=== PATIENT | female | born 1980 | race Caucasian/White ===

== ENCOUNTER 2016-04-23 09:35 | Emergency (ER) | payer OTHER ==
[~2016-04-23] VITALS: Ht 165.1 cm; Wt 82.6 kg
[~2016-04-23 09:35] MED LIST: ACTOS15 MG PO; GLYBURIDE AND M1 TA2 PO; METFORMIN500 MG PO
[2016-04-23 09:59] VITALS: BP 148/110
--- NOTE | 2016-04-23 10:02 | NUR ---
Patient ambulated to bed 08.
--- NOTE | 2016-04-23 10:09 | NUR ---
PATIENT PRESENTS TO ED DUE TO LEFT SIDED BACK, LEG, AND HIP PAIN X 3 DAYS, DENIES N/V/D; SKIN IS PINK/WARM/DRY; AAOX4 WITH EVEN AND STEADY GAIT; LUNGS CLEAR BL; HR EVEN AND REGULAR; PT DENIES ANY FEVER, CP, SOB, OR COUGH AT THIS TIME; PATIENT STATES PAIN OF 10/10 AT THIS TIME; PATIENT POSITIONED FOR COMFORT; HOB ELEVATED; BEDRAILS UP X2; BED DOWN. DR. MAJOR AT BEDSIDE.AWARE OF THE RESULT OF URINE DIPSTICK.
--- NOTE | 2016-04-23 10:12 | NUR ---
Dr. Soares evaluating patient at bedside.
[2016-04-23] MEDS ORDERED: METHOCARBAMOL 500 MG TAB PO SCH (10:20)
[2016-04-23] MEDS ORDERED: KETOROLAC 30 MG/ML VIAL IM ONE (10:20)
[2016-04-23] MEDS ORDERED: HYDROcodone/APAP 5/325 MG 1 TAB TAB PO ONE (10:20)
[2016-04-23] MEDS ORDERED: MORPHINE SULFATE 4 MG/ML SYR IM ONE (11:20)
--- NOTE | 2016-04-23 11:20 | NUR ---
PT SITTING IN BED STILL COMPLAINING OF BACK PAIN,DR. MAJOR AWARE
[2016-04-23 12:14] VITALS: BP 130/81
--- NOTE | 2016-04-23 12:14 | NUR ---
Patient discharged with v/s stable. Written and verbal after care instructions given and explained. Patient alert, oriented and verbalized understanding of instructions. Ambulatory with steady gait. All questions addressed prior to discharge. ID band removed. Patient advised to follow up with PMD. Rx of CIPRO,MOTRIN,NEURONTIN AND ROBAXIN given. Patient educated on indication of medication including possible reaction and side effects. Opportunity to ask questions provided and answered.
== END 2016-04-23 12:14 | disposition home or self-care (01) ==
LOC: MED 09:37
DX: M54.16 Radiculopathy, lumbar region (principal); N93.9 Abnormal uterine and vaginal bleeding, unspecified; E11.9 Type 2 diabetes mellitus without complications; Z88.1 Allergy status to other antibiotic agents
CPT/HCPCS: 81002; 81025; 96372; 99284; J1885; J2270

== ENCOUNTER 2016-09-10 19:31 | Emergency (ER) | payer OTHER ==
[~2016-09-10] VITALS: Ht 162.6 cm; Wt 79.4 kg
[~2016-09-10 19:31] MED LIST changes: -ACTOS15 MG PO; +GLYB1TAB13 PO; -GLYBURIDE AND M1 TA2 PO; -METFORMIN500 MG PO
[2016-09-10 19:48] VITALS: BP 140/92
--- NOTE | 2016-09-10 22:37 | NUR ---
PATIENT TO ER BED 8
--- NOTE | 2016-09-10 22:59 | NUR ---
Patient being evaluated by Dr. Lara at bedside.
--- NOTE | 2016-09-10 23:02 | NUR ---
36/F c/o vaginal pain and burning x3 days. Pt states "I think I have blisters there. It hurtado when I pee but not out of where I pee but around it." Denies any fever or chills. AOX4, ambulatory with steady gait. VSS.
--- NOTE | 2016-09-10 23:04 | NUR ---
Pelvic exam performed by Dr. Lara with myself at bedside for entire examination. Patient tolerated procedure well. Patient assisted to position of comfort after examination.
[2016-09-10] MEDS ORDERED: KETOROLAC 60 MG/2 ML VIAL IM ONE (23:05)
[2016-09-10 23:30] VITALS: BP 129/88
--- NOTE | 2016-09-10 23:30 | NUR ---
Chart checked and completed. The patient's care was reviewed and supervised by Oneil Morillo RN.
--- NOTE | 2016-09-10 23:30 | NUR ---
Patient discharged with v/s stable. Written and verbal after care instructions given and explained. Patient alert, oriented and verbalized understanding of instructions. Ambulatory with steady gait. All questions addressed prior to discharge. ID band removed. Patient advised to follow up with PMD. Rx of CIPRO 500 MG, MOTRIN 500 MG, NORCO 5/325 MG, ACYCLOVIR 800 MG given. Patient educated on indication of medication including possible reaction and side effects. Opportunity to ask questions provided and answered.
[2016-09-15 06:27] LABS: CHLAMYDIA TRACHOMATIS AMP DNA Negative (Negative)
== END 2016-09-10 23:30 | disposition home or self-care (01) ==
LOC: MED 19:31
DX: N39.0 Urinary tract infection, site not specified (principal); B00.9 Herpesviral infection, unspecified; E11.9 Type 2 diabetes mellitus without complications; Z90.49 Acquired absence of other specified parts of digestive tract; Z88.1 Allergy status to other antibiotic agents; Z79.899 Other long term (current) drug therapy
CPT/HCPCS: 36415; 81002; 81025; 87491; 96372; 99283; J1885; 99284

== ENCOUNTER 2017-03-23 08:55 | Emergency (ER) | payer OTHER ==
[~2017-03-23] VITALS: Ht 162.6 cm; Wt 79.4 kg
[2017-03-23 09:06] VITALS: BP 151/98
--- NOTE | 2017-03-23 09:10 | NUR ---
PT AMBULATED TO BED 10.
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
[2017-03-23] MEDS ORDERED: NACL 0.9% 1,000 ML IV ONE (09:30)
[2017-03-23 09:56] LABS: BASOPHILS # (AUTO) 0.3 K/uL (0.00-0.22); BASOPHILS % (AUTO) 4.6 % (0.0-2.0); EOSINOPHILS # (AUTO) 0.2 K/uL (0-0.4); EOSINOPHILS % (AUTO) 2.5 % (0.0-4.0); HEMATOCRIT 42.5 % (36-48); HEMOGLOBIN 14.1 g/dL (12.0-16.0); LYMPHOCYTES # (AUTO) 2.3 K/uL (2.5-16.5); LYMPHOCYTES % (AUTO) 35.8 % (20.5-51.1); MEAN CORPUSCULAR HEMOGLOBIN 29 pg (27-31); MEAN CORPUSCULAR HGB CONC 33 g/dL (33-37); MEAN CORPUSCULAR VOLUME 87 fL (80-94); MONOCYTES # (AUTO) 0.5 K/uL (0.8-1.0); MONOCYTES % (AUTO) 7.4 % (1.7-9.3); NEUTROPHILS % (AUTO) 49.7 % (42.2-75.2); PLATELET COUNT (AUTO) 286 K/uL (140-450); RED BLOOD CELL COUNT(AUTO) 4.87 MIL/uL (4.20-5.40); WHITE BLOOD COUNT (AUTO) 6.3 K/uL (4.8-10.8)
[2017-03-23 10:27] LABS: ALBUMIN 3.4 g/dL (3.4-5.0); ANION GAP 18.4 (8-16); CARBON DIOXIDE 23.6 mmol/L (21-32); CREATININE 0.8 mg/dL (0.6-1.3); TOTAL BILIRUBIN 0.5 mg/dL (0.0-1.0)
--- NOTE | 2017-03-23 10:45 | NUR ---
PT TAKEN TO CT VIA W/C, ACCOMPANIED BY PLANT TENDER.
[2017-03-23 11:33] VITALS: BP 134/84
--- NOTE | 2017-03-23 11:33 | NUR ---
Patient discharged with v/s stable. Written and verbal after care instructions given and explained. Patient alert, oriented and verbalized understanding of instructions. Ambulatory with steady gait. All questions addressed prior to discharge. ID band removed. Patient advised to follow up with PMD. Rx of BACTRIM, NAPROSYN & TYLENOL given. Patient educated on indication of medication including possible reaction and side effects. Opportunity to ask questions provided and answered.
== END 2017-03-23 11:33 | disposition home or self-care (01) ==
LOC: MED 08:55
DX: L02.215 Cutaneous abscess of perineum (principal); E11.9 Type 2 diabetes mellitus without complications; F03.90 Unspecified dementia, unspecified severity, without behavioral disturbance, psychotic disturbance, mood disturbance, and anxiety; Z88.1 Allergy status to other antibiotic agents; Z79.84 Long term (current) use of oral hypoglycemic drugs
CPT/HCPCS: 36415; 72193; 80053; 81002; 81025; 82948; 85025; 96360; 99285; Q9967

== ENCOUNTER 2017-06-25 11:16 | Emergency (ER) | payer OTHER ==
[~2017-06-25] VITALS: Ht 162.6 cm; Wt 80.7 kg
[~2017-06-25 11:16] MED LIST changes: -GLYB1TAB13 PO; +[UNRECOGNIZED DRUG - CODE] PO
[2017-06-25 11:18] VITALS: BP 147/87
--- NOTE | 2017-06-25 11:28 | NUR ---
PATIENT TO CHAIR E
--- NOTE | 2017-06-25 11:47 | NUR ---
STY ON HER LEFT EYE WITH PAIN, REDNESS, SWELLING FOR 7DAYS. reports fevers at night only, no drainage observed.
--- NOTE | 2017-06-25 11:56 | NUR ---
DR MILLER BY CHAIR FOR EXAM.
[2017-06-25 12:06] VITALS: BP 147/87
--- NOTE | 2017-06-25 12:06 | NUR ---
Patient discharged with v/s stable. Written and verbal after care instructions given and explained. Patient alert, oriented and verbalized understanding of instructions. Ambulatory with steady gait. All questions addressed prior to discharge. ID band removed. Patient advised to follow up with PMD. Rx of BACTRIM AND BLEPH -10 OPTHALMIC given. Patient educated on indication of medication including possible reaction and side effects. Opportunity to ask questions provided and answered.
== END 2017-06-25 12:06 | disposition home or self-care (01) ==
LOC: MED 11:16
DX: H00.025 Hordeolum internum left lower eyelid (principal); E11.9 Type 2 diabetes mellitus without complications; Z79.84 Long term (current) use of oral hypoglycemic drugs; Z88.1 Allergy status to other antibiotic agents
CPT/HCPCS: 99283

== ENCOUNTER 2018-01-06 18:29 | Emergency (ER) | payer OTHER ==
[~2018-01-06] VITALS: Ht 167.6 cm; Wt 70.3 kg
[2018-01-06 18:34] VITALS: BP 136/79
--- NOTE | 2018-01-06 18:35 | NUR ---
[place] [employer] HERE SPEAKING WITH PT
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
[2018-01-06] MEDS ORDERED: DIAZEPAM 5 MG TAB PO ONE (19:40)
[2018-01-06] MEDS ORDERED: KETOROLAC 30 MG/ML VIAL IM ONE (19:40)
[2018-01-06 20:09] VITALS: BP 130/72
--- NOTE | 2018-01-06 20:10 | NUR ---
Patient discharged with v/s stable. Written and verbal after care instructions given and explained. Patient alert, oriented and verbalized understanding of instructions. Ambulatory with steady gait. All questions addressed prior to discharge. ID band removed. Patient advised to follow up with PMD. Rx of NAPROSYN, VALIUM given. Patient educated on indication of medication including possible reaction and side effects. Opportunity to ask questions provided and answered.
== END 2018-01-06 20:10 | disposition home or self-care (01) ==
LOC: MED 18:29
DX: S39.012A Strain of muscle, fascia and tendon of lower back, initial encounter (principal); F03.90 Unspecified dementia, unspecified severity, without behavioral disturbance, psychotic disturbance, mood disturbance, and anxiety; E11.9 Type 2 diabetes mellitus without complications; Z90.49 Acquired absence of other specified parts of digestive tract; Z88.1 Allergy status to other antibiotic agents; V43.52XA Car driver injured in collision with other type car in traffic accident, initial encounter; Y93.I9 Activity, other involving external motion; Y92.488 Other paved roadways as the place of occurrence of the external cause; Y99.8 Other external cause status
CPT/HCPCS: 72072; 96372; 99284; J1885

== ENCOUNTER 2018-07-02 19:09 | Emergency (ER) | payer OTHER ==
[~2018-07-02] VITALS: Ht 162.6 cm; Wt 79.4 kg
[2018-07-02 19:25] VITALS: BP 150/90
--- NOTE | 2018-07-02 19:25 | NUR ---
VISUAL ACUITY BOTH EYE 20/25, RT 20/25, LEFT EYE 20/25
--- NOTE | 2018-07-02 19:25 | NUR ---
TO BED # 4 AMBULATORY
--- NOTE | 2018-07-02 19:32 | NUR ---
PT TAKEN TO BED 3
--- NOTE | 2018-07-02 19:39 | NUR ---
Dr. Dhaliwal evaluating patient at bedside.
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
[2018-07-02] MEDS ORDERED: KETOROLAC 60 MG/2 ML VIAL IM ONE (19:50)
--- NOTE | 2018-07-02 20:34 | NUR ---
PT VERBALIZED A PAIN DECREASED TO 7/10. VSS
[2018-07-02] MEDS ORDERED: fentaNYL 0.05 MG/ML VIAL IM ONE (20:40)
--- NOTE | 2018-07-02 21:10 | NUR ---
REPORT TAKEN FROM KATELYNN YOUNG, TRANSFER OF CARE AT THIS TIME.
[2018-07-02 21:24] VITALS: BP 140/82
--- NOTE | 2018-07-02 21:24 | NUR ---
Patient discharged with v/s stable. Written and verbal after care instructions given and explained. Patient alert, oriented and verbalized understanding of instructions. Ambulatory with steady gait. All questions addressed prior to discharge. ID band removed. Patient advised to follow up with PMD. Rx of TRAMADOL AND MOTRIN given. Patient educated on indication of medication including possible reaction and side effects. Opportunity to ask questions provided and answered.
== END 2018-07-02 21:24 | disposition home or self-care (01) ==
LOC: MED 19:09
DX: R51 Headache (principal); H57.12 Ocular pain, left eye; H53.149 Visual discomfort, unspecified; E11.9 Type 2 diabetes mellitus without complications; F03.90 Unspecified dementia, unspecified severity, without behavioral disturbance, psychotic disturbance, mood disturbance, and anxiety; Z79.84 Long term (current) use of oral hypoglycemic drugs; Z88.1 Allergy status to other antibiotic agents
CPT/HCPCS: 70480; 81025; 96372; 99284; J1885; J3010

== ENCOUNTER 2020-10-16 11:19 | Inpatient (IN) | payer OTHER, SELFPAY ==
[~2020-10-16] VITALS: Ht 162.6 cm; Wt 74.8 kg
[~2020-10-16 11:19] MED LIST changes: +[UNRECOGNIZED DRUG - CODE] PO; -[UNRECOGNIZED DRUG - CODE] PO
[2020-10-16 11:31] VITALS: BP 152/86
--- NOTE | 2020-10-16 11:31 | NUR ---
40 YEAR OLD FEMALE COMPLAINS OF LEFT FLANK PAIN X 3 WEEKS. PT STATES SHE HAD KIDNEY STONES AND A UTI X 3 WEEKS AGO. PT STATES SHE FINISHED ANTIBIOTICS PRESCRIBED, BUT FLANK PAIN CONTINUED AND PROGRESSED. PT DENIES N/V/D. PT DENIES URINATION BURNING, FREQUENCY, ODOR. PMH - DM2
[2020-10-16 14:43] LABS: BASOPHILS % (AUTO) 0.3 % (0.0-2.0); EOSINOPHILS # (AUTO) 0.2 K/uL (0-0.4); EOSINOPHILS % (AUTO) 2.7 % (0.0-4.0); HEMATOCRIT 43.1 % (36-48); HEMOGLOBIN 14.6 g/dL (12.0-16.0); LYMPHOCYTES # (AUTO) 2.7 K/uL (2.5-16.5); LYMPHOCYTES % (AUTO) 36.1 % (20.5-51.1); MEAN CORPUSCULAR HEMOGLOBIN 30 pg (27-31); MEAN CORPUSCULAR HGB CONC 34 g/dL (33-37); MEAN CORPUSCULAR VOLUME 88.2 fL (80-94); MONOCYTES # (AUTO) 0.5 K/uL (0.8-1.0); MONOCYTES % (AUTO) 6.5 % (1.7-9.3); NEUTROPHILS # (AUTO) 4.1 K/uL (1.8-7.7); NEUTROPHILS % (AUTO) 54.4 % (42.2-75.2); PLATELET COUNT (AUTO) 308 K/uL (140-450); RED BLOOD CELL COUNT(AUTO) 4.89 MIL/uL (4.20-5.40); RED CELL DISTRIBUTION WIDTH 13.3 % (11.6-13.7); WHITE BLOOD COUNT (AUTO) 7.6 K/uL (4.8-10.8)
[2020-10-16] MEDS ORDERED: KETOROLAC 60 MG/2 ML VIAL IM ONE (14:45)
[2020-10-16 15:06] LABS: ALBUMIN 3.5 g/dL (3.4-5.0); ANION GAP 12.4 (8-16); CARBON DIOXIDE 28.4 mmol/L (21-32); CREATININE 0.8 mg/dL (0.6-1.3); POTASSIUM 4.8 mmol/L (3.5-5.1); TOTAL BILIRUBIN 0.9 mg/dL (0.0-1.0)
[2020-10-16 15:08] LABS: APPEARANCE,URINE SL CLOUDY (CLEAR); BILIRUBIN,URINE NEGATIVE (NEGATIVE); BLOOD, URINE TRACE-I (NEGATIVE); LEUKOCYTE ESTERASE ,URINE TRACE (NEGATIVE); NITRITE, URINE NEGATIVE (NEGATIVE); PH,URINE 5.5 (5.0-9.0); UGLUCOSE 3+ (NEGATIVE)
[2020-10-16 15:22] LABS: COLOR,URINE YELLOW (YELLOW)
[2020-10-16 15:53] LABS: WBC,URINE 80-100 /HPF (0-5)
[2020-10-16 15:54] LABS: YEAST,URINE Few /HPF (None Seen)
--- NOTE | 2020-10-16 16:41 | NUR ---
Ambulated to bed 5
[2020-10-16] MEDS ORDERED: MORPHINE SULFATE 4 MG/ML SYR IVP ONE (16:45)
[2020-10-16] MEDS ORDERED: ONDANSETRON 4 MG/2 ML VIAL IVP ONE (16:45)
[2020-10-16] MEDS ORDERED: NACL 0.9% 1,000 ML IV ONE (16:45)
[2020-10-16] MEDS ORDERED: LEVOFLOXACIN 750 MG/D5W PREMIX 150 ML IV ONE (17:15)
--- NOTE | 2020-10-16 18:24 | NUR ---
PT ALERT AND AWAKE, BREATHING EVEN AND UNLABORED. NO DISTRESS NOTED. PT STATES PAIN MUCH MORE TOLERABLE AND DOING FINE
--- NOTE | 2020-10-16 19:16 | NUR ---
report received from rico oshea. transfer of care at this time.
--- NOTE | 2020-10-16 19:16 | NUR ---
REPORT GIVEN TO ENRIQUE YOUNG, TRANSFER OF CARE AT THIS TIME
[2020-10-16] MEDS ORDERED: ACETAMINOPHEN 325 MG TAB PO PRN (19:25)
[2020-10-16] MEDS ORDERED: DEXTROSE 50% 50 ML SYR IVP PRN (19:25)
[2020-10-16] MEDS ORDERED: MAG SULF 2000 MG/WATER PREMIX 50 ML IV PRN (19:25)
[2020-10-16] MEDS ORDERED: FLUCONAZOLE 100 MG TAB PO SCH (19:25)
[2020-10-16] MEDS ORDERED: SODIUM PHOS / POTASSIUM PHOS 1 PKT PDR PO PRN (19:25)
[2020-10-16] MEDS ORDERED: POTASSIUM CHLORIDE 40 MEQ, LIDOCAINE MPF 1% 25 MG in NACL 0.9% 250 ML IV PRN (19:25)
[2020-10-16] MEDS ORDERED: ONDANSETRON 4 MG/2 ML VIAL IM/IVP PRN (19:25)
--- NOTE | 2020-10-16 19:40 | NUR ---
pt is sitting up in bed. pt stated pain is starting to begin, ermd aware, will check kidney function for pain medication. all other needs met. bed locked in lowest position, side rails x1.
[2020-10-16 19:41] LABS: MAGNESIUM 1.9 mg/dL (1.8-2.4); PHOSPHORUS 2.6 mg/dL (2.5-4.9)
--- NOTE | 2020-10-16 20:01 | NUR ---
pt refused perry swab. ermd made aware.
[2020-10-16] MEDS: NACL 0.9% 1,000 ML IV SCH (20:07)
[2020-10-16] MEDS: BLOOD GLUCOSE MONITORING 1 DEV DEV FS SCH (20:32)
[2020-10-16] MEDS: INSULIN LISPRO SLIDING SCALE 100 UNITS/ML VIAL SUBQ PRN (20:35)
--- NOTE | 2020-10-16 20:45 | NUR ---
pt reported L flank pain 09/07. pt has 1mg of morphine ordered. offered to pt. pt stated its not enough. offered pt morphine as well as norco for pain. pt stated that was ok.
[2020-10-16] MEDS: HYDROcodone/APAP 5/325 MG 1 TAB TAB PO PRN (20:51)
[2020-10-16] MEDS: MORPHINE SULFATE 2 MG/ML SYR IVP PRN (20:53)
--- NOTE | 2020-10-16 21:42 | NUR ---
PT IS RESTING, EQUAL RISE AND FALL OF CHEST WALL. OPENS EYES TO SOUND. VSS. BED LOCKED IN LOWEST POSITION, SIDE RAILS X1. ALL NEEDS MET AT THIS TIME.
--- NOTE | 2020-10-16 21:52 | NUR ---
CALLED AND GAVE REPORT TO HECTOR GREY. [id number].
--- NOTE | 2020-10-16 22:00 | NUR ---
RECEIVED BEDSIDE ENDORSEMENT FROM AM SHIFT RN. PATIENT IS AAOX4, ON ROOM AIR, AMBULATORY, SKIN INTACT, V/S TAKEN, MRSA SWAB TAKEN, ORIENTED TO ROOM, ALL QUESTIONS ANSWERED, SAFETY MEASURES IN PLACE, KEPT COMFORTABLE, WILL CONTINUE TO MONITOR, CALL LIGHT WITHIN REACH.
--- NOTE | 2020-10-16 22:00 | NUR ---
Patient will be admitted to care of . Admited to [facility]. Will go to [id number]. Belongings list completed. Report to HECTOR GREY.
[2020-10-17] MEDS: KETOROLAC 30 MG/ML VIAL IVP PRN ×2 (00:47→20:46)
--- NOTE | 2020-10-17 00:47 | NUR ---
C/O LEFT FLANK PAIN, 3/10, ENCOURAGED RELAXATION, PAIN MED GIVEN ORDERED, CALL LIGHT WITHIN REACH.
--- NOTE | 2020-10-17 03:00 | NUR ---
CHECKED PATIENT, ASLEEP, EASILY AROUSABLE, RESPIRATION EVEN AND UNLABORED, CALL LIGHT WITHIN REACH.
[2020-10-17 04:00] VITALS: BP 143/94
[2020-10-17] MEDS: MORPHINE SULFATE 2 MG/ML SYR IVP PRN (04:53)
[2020-10-17] MEDS: BLOOD GLUCOSE MONITORING 1 DEV DEV FS SCH ×4 (05:59→20:59)
[2020-10-17] MEDS: HYDROcodone/APAP 5/325 MG 1 TAB TAB PO PRN (06:02)
[2020-10-17] MEDS: INSULIN LISPRO SLIDING SCALE 100 UNITS/ML VIAL SUBQ PRN ×4 (06:02→20:58)
--- NOTE | 2020-10-17 06:02 | NUR ---
C/O LEFT FLANK PAIN RADIATING TO ABD, RELAXATION ENCOURAGED, PAIN MED GIVEN, KEPT COMFORTABLE, CALL LIGHT WITHIN REACH.
[2020-10-17] MEDS ORDERED: MORPHINE SULFATE 2 MG/ML SYR IVP PRN (06:55)
--- NOTE | 2020-10-17 07:20 | NUR ---
PATIENT STABLE, ENDORSED AT BEDSIDE TO AM SHIFT RN.
--- NOTE | 2020-10-17 07:20 | NUR ---
RECEIVED REPORT FROM NIGHT NURSE PATIENT IS AAOX4 ON ROOM AIR, SKIN INTACT, AMBULATORY, LAST BLOOD SUGAR 153 MG/DL CT ABDOMEN DONE WITH NEPHROLITHIASIS AT 1MM. IV INTACT ON LEFT HAND WITH NS AT 80 MLS/HR. SAFETY MEASURES IN PLACE AND CALL LIGHT WITHIN REACH. WILL CONTINUE TO MONITOR.
[2020-10-17 07:33] LABS: BASOPHILS % (AUTO) 0.3 % (0.0-2.0); EOSINOPHILS # (AUTO) 0.2 K/uL (0-0.4); EOSINOPHILS % (AUTO) 2.7 % (0.0-4.0); HEMATOCRIT 35.3 % (36-48); LYMPHOCYTES # (AUTO) 2.5 K/uL (2.5-16.5); LYMPHOCYTES % (AUTO) 43.1 % (20.5-51.1); MEAN CORPUSCULAR HEMOGLOBIN 31 pg (27-31); MEAN CORPUSCULAR HGB CONC 34 g/dL (33-37); MEAN CORPUSCULAR VOLUME 89.3 fL (80-94); MONOCYTES # (AUTO) 0.5 K/uL (0.8-1.0); MONOCYTES % (AUTO) 9.5 % (1.7-9.3); NEUTROPHILS # (AUTO) 2.6 K/uL (1.8-7.7); NEUTROPHILS % (AUTO) 44.4 % (42.2-75.2); PLATELET COUNT (AUTO) 242 K/uL (140-450); RED BLOOD CELL COUNT(AUTO) 3.95 MIL/uL (4.20-5.40); RED CELL DISTRIBUTION WIDTH 13.6 % (11.6-13.7); WHITE BLOOD COUNT (AUTO) 5.8 K/uL (4.8-10.8)
[2020-10-17 07:41] LABS: CREATININE 0.7 mg/dL (0.6-1.3)
[2020-10-17] MEDS: NACL 0.9% 1,000 ML IV SCH ×2 (07:55→20:25)
[2020-10-17 08:00] VITALS: BP 147/75
--- NOTE | 2020-10-17 08:39 | NUR ---
PATIENT HAS BEEN SCREENED AND CATEGORIZED LOW NUTRITION RISK. PATIENT WILL BE SEEN WITHIN 7 DAYS OF ADMISSION. 10/23/[address]
[2020-10-17] MEDS: TAMSULOSIN 0.4 MG CAP PO SCH (08:40)
[2020-10-17] MEDS: ATORVASTATIN 20 MG TAB PO SCH (08:41)
--- NOTE | 2020-10-17 08:46 | NUR ---
ADMINISTERED SCHEDULED MEDICATION AND PT SEEN BY DR CAMARENA AND ORDERED DILAUDID 0.5 MG PO Q4H PRN. PT COMPLAINS OF PAIN ON THE LEFT FLANK RADIATING ON THE ABDOMEN. WILL CONTINUE TO MONITOR.
[2020-10-17] MEDS ORDERED: LEVOFLOXACIN 250 MG/D5 PREMIX 50 ML IV SCH (09:00)
[2020-10-17] MEDS: HYDROmorphone 2 MG TAB PO PRN ×4 (10:02→22:22)
--- NOTE | 2020-10-17 10:02 | NUR ---
PATIENT COMPLAINS OF LEFT FLANK PAIN / CHECK VITAL SIGNS PRIOR TO MEDICATION BP 147/75 WV 86. WILL CONTINUE TO MONITOR.
--- NOTE | 2020-10-17 11:24 | NUR ---
BLOOD SUGAR 305 MG/DL INSULIHN COVERAGE GIVEN AND PT LEFT FLANK PAIN DECREASE FROM 10/10 TO 7/10. PT IS RESTING.
--- NOTE | 2020-10-17 14:15 | NUR ---
PATIENT COMPLAINS OF LEFT FLANK PAIN 9/10 PAIN MEDICATION GIVEN.
[2020-10-17 16:00] VITALS: BP 134/85
--- NOTE | 2020-10-17 16:20 | NUR ---
BLOOD SUGAR 290 MG/DL INSULIN COVERAGE GIVEN AND IV ANTIBIOTIC INFUSING WELL NO DISTRESS NOTED PT IS RESTING. WILL CONTINUE TO MONITOR.
[2020-10-17] MEDS: LEVOFLOXACIN 750 MG/D5W PREMIX 150 ML IV SCH (16:28)
--- NOTE | 2020-10-17 18:17 | NUR ---
PATIENT COMPLAINS OF PAIN ON THE LEFT FLANK RADIATING TO THE ABDOMEN 10/10 PAIN MEDICATION GIVEN. WILL CONTINUE TO MONITOR.
--- NOTE | 2020-10-17 19:24 | NUR ---
ENDORSED TO NIGHT NURSE FOR CONTINUITY OF CARE. PT IS STABLE.
[2020-10-17] MEDS: HYDROcodone/APAP 7.5/325 MG 1 TAB PO PRN (20:47)
[2020-10-17] MEDS: DOCUSATE SODIUM 100 MG GELCAP PO PRN (20:47)
[2020-10-17 21:00] VITALS: BP 149/91
[2020-10-18] MEDS: NACL 0.9% 1,000 ML IV SCH ×2 (00:36→21:03)
[2020-10-18] MEDS: HYDROcodone/APAP 7.5/325 MG 1 TAB PO PRN ×5 (00:46→18:00)
[2020-10-18] MEDS: KETOROLAC 30 MG/ML VIAL IVP PRN ×3 (03:17→23:32)
[2020-10-18] MEDS: HYDROmorphone 2 MG TAB PO PRN ×4 (03:18→20:43)
[2020-10-18 04:57] VITALS: BP 135/81
[2020-10-18] MEDS: BLOOD GLUCOSE MONITORING 1 DEV DEV FS SCH ×4 (06:44→20:42)
[2020-10-18] MEDS: INSULIN LISPRO SLIDING SCALE 100 UNITS/ML VIAL SUBQ PRN ×4 (06:47→20:37)
--- NOTE | 2020-10-18 07:25 | NUR ---
RECEIVED REPORT FROM GROUP ACTIVITIES AIDE NURSE FOR CONTINUITY OF CARE. PT IS AWAKE AND ALERT. PT ON RA WITH UNLABORED BREATHING. SKIN IS DRY AND WARM. IV INTACT WITH FLUIDS RUNNING NS AT 80 ML/HR. REVIEWED PLAN OF CARE. CALL LIGHT WITHIN REACH. WILL CONTINUE TO MONITOR.
[2020-10-18 07:42] LABS: BASOPHILS % (AUTO) 0.3 % (0.0-2.0); EOSINOPHILS # (AUTO) 0.2 K/uL (0-0.4); EOSINOPHILS % (AUTO) 2.5 % (0.0-4.0); HEMATOCRIT 32.8 % (36-48); HEMOGLOBIN 11.2 g/dL (12.0-16.0); LYMPHOCYTES # (AUTO) 3.1 K/uL (2.5-16.5); LYMPHOCYTES % (AUTO) 50.8 % (20.5-51.1); MEAN CORPUSCULAR HEMOGLOBIN 31 pg (27-31); MEAN CORPUSCULAR HGB CONC 34 g/dL (33-37); MEAN CORPUSCULAR VOLUME 89.8 fL (80-94); MONOCYTES # (AUTO) 0.5 K/uL (0.8-1.0); MONOCYTES % (AUTO) 7.7 % (1.7-9.3); NEUTROPHILS # (AUTO) 2.4 K/uL (1.8-7.7); NEUTROPHILS % (AUTO) 38.7 % (42.2-75.2); PLATELET COUNT (AUTO) 200 K/uL (140-450); RED BLOOD CELL COUNT(AUTO) 3.65 MIL/uL (4.20-5.40); RED CELL DISTRIBUTION WIDTH 13.5 % (11.6-13.7); WHITE BLOOD COUNT (AUTO) 6.1 K/uL (4.8-10.8)
[2020-10-18 07:43] LABS: ANION GAP 12.9 (8-16); CARBON DIOXIDE 24.4 mmol/L (21-32); CREATININE 0.7 mg/dL (0.6-1.3); POTASSIUM 4.3 mmol/L (3.5-5.1)
[2020-10-18 08:00] VITALS: BP 150/88
[2020-10-18] MEDS: lisinopriL 5 MG TAB PO SCH (09:41)
[2020-10-18] MEDS: TAMSULOSIN 0.4 MG CAP PO SCH (09:41)
[2020-10-18] MEDS: DOCUSATE SODIUM 100 MG GELCAP PO PRN (09:41)
[2020-10-18] MEDS: ATORVASTATIN 20 MG TAB PO SCH (09:42)
--- NOTE | 2020-10-18 09:42 | NUR ---
ADMINISTERED PRESCRIBED MEDICATION. MEDICATION EDUCATION PROVIDED. PT VERBALIZED UNDERSTANDING. PT STATES THAT SHE WOULD LIKE A STOOL SOFTENER. PT STATES SHE HAS PAIN LEVEL 8/10. WILL ADMINISTER PRN STOOL SOFTENER AND PAIN MEDICATION
--- NOTE | 2020-10-18 11:30 | NUR ---
PT BLOOD SUGAR 224. WILL ADMINISTER PRESCRIBED INSULIN.
[2020-10-18] MEDS ORDERED: CRUSHER, PILL MC ONE (11:53)
--- NOTE | 2020-10-18 13:30 | NUR ---
PT AWAKE AND ALERT. PT ON RA WITH UNLABORED BREATHING. PT STABLE. WILL CONTINUE TO MONITOR.
--- NOTE | 2020-10-18 16:36 | NUR ---
PT STATES PAIN LEVEL 6/10 IN THE ABDOMEN. WILL MEDICATE WITH PRN PAIN MEDICATION.
[2020-10-18] MEDS: LEVOFLOXACIN 750 MG/D5W PREMIX 150 ML IV SCH (16:37)
[2020-10-18] MEDS: PHENAZOPYRIDINE 100 MG TAB PO SCH (17:53)
--- NOTE | 2020-10-18 18:59 | NUR ---
BLOOD SUGAR IS 242. ADMINISTERED PRESCRIBED INSULIN.
--- NOTE | 2020-10-18 19:05 | NUR ---
ENDORSED REPORT TO GYN NURSE FOR CONTINUITY OF CARE. PT STABLE.
--- NOTE | 2020-10-18 19:30 | NUR ---
RECEIVED REPORT FROM RN DAYSHIFT NURSE AT BEDSIDE FOR CONTINUITY OF CARE, PT IN STABLE CONDITION.
[2020-10-18 20:00] VITALS: BP 135/95
--- NOTE | 2020-10-18 20:00 | NUR ---
PT SITING UP IN BED ON ROOM AIR, AOX4 SHE HAS A 20G IV SITE ON LEFT HAND RUNNING NORMAL SALINE AT 80MLS/HR. V/S FOLLOWS: T 97.9 P 91 R 18 B/P 135/95 02 90%. PT SAYS SHE HAS PAIN BUT IS TOLERABLE AT THIS TIME. ALL UN[place]AL [place] PRECAUTIONS IN PLACE.
--- NOTE | 2020-10-18 21:00 | NUR ---
PT C/O OF 8/10 PAIN ON LEFT SIDE OF ABDOMEN AND BACK. NEW ORDER NOTED FOR DILAUDID 1MG 0.5 TABLET INSTEAD OF THE 0.25 TABLE 0.5MG. PT GIVEN PRN 1MG 0.5TABLET. OTHER 0.5MG TABLET WASTED WITH CHARGE NURSE EVON. PT FINGERSTICK IS 213, PT GIVEN 4 UNITS OF HUMALOG COVERAGE PER S/S. PT VERBALIZED UNDERSTANDING OF PRN PAIN MEDICATION ORDERED WELL DIABETIC TEACHING AND S/S COVERAGE. ALL UN[place]AL [place]S PRECAUTIONS IN PLACE.
--- NOTE | 2020-10-19 | NUR ---
PT C/O OF MILD BREAKTHROUGH PAIN AND WAS GIVEN IVP TORADOL. ORDERED. WILL CONTINUE TO MONITOR FOR PAIN RELIEF.
--- NOTE | 2020-10-19 00:30 | NUR ---
NEW ORDER NOTED FOR GENTAMICIN WHICH IS SENSITIVE TO E COLI BACTERIA. IV ABT HUNG AND RUNNING ORDERED.
--- NOTE | 2020-10-19 02:00 | NUR ---
PT IN BED ASLEEP. NORMAL SALINE RUNNING ORDERED. ALL UN[place]AL [place] PRECAUTIONS IN PLACE.
[2020-10-19 04:00] VITALS: BP 143/83
[2020-10-19] MEDS: HYDROmorphone 2 MG TAB PO PRN ×3 (04:40→17:10)
[2020-10-19] MEDS: INSULIN LISPRO SLIDING SCALE 100 UNITS/ML VIAL SUBQ PRN ×4 (06:36→21:34)
[2020-10-19] MEDS: HYDROcodone/APAP 7.5/325 MG 1 TAB PO PRN (06:45)
--- NOTE | 2020-10-19 06:45 | NUR ---
PT C/O OF / PAIN ON LEFT SIDE GIVEN 1 TAB NORCO 7.5/325MG TABLET FLUIDS REPLACED, NORMAL SALINE RUNNING AT 80MLS/HR ORDERED. FINGERSTICK IS 208, PT GIVEN 4 UNITS PER S/S. ALL [place] PRECAUTIONS IN PLACE .
[2020-10-19] MEDS: BLOOD GLUCOSE MONITORING 1 DEV DEV FS SCH ×4 (06:46→21:36)
--- NOTE | 2020-10-19 07:30 | NUR ---
RECEIVED REPORT FROM NIGHT NURSE. WILL CONTINUE PLAN OF CARE.
[2020-10-19 07:48] LABS: ANION GAP 11.4 (8-16); CARBON DIOXIDE 24.3 mmol/L (21-32); CREATININE 0.7 mg/dL (0.6-1.3); POTASSIUM 4.7 mmol/L (3.5-5.1)
[2020-10-19 07:52] LABS: BASOPHILS % (AUTO) 0.3 % (0.0-2.0); EOSINOPHILS # (AUTO) 0.2 K/uL (0-0.4); EOSINOPHILS % (AUTO) 2.6 % (0.0-4.0); HEMATOCRIT 31.5 % (36-48); HEMOGLOBIN 10.8 g/dL (12.0-16.0); LYMPHOCYTES # (AUTO) 2.9 K/uL (2.5-16.5); MEAN CORPUSCULAR HEMOGLOBIN 30 pg (27-31); MEAN CORPUSCULAR HGB CONC 34 g/dL (33-37); MEAN CORPUSCULAR VOLUME 88.6 fL (80-94); MONOCYTES # (AUTO) 0.5 K/uL (0.8-1.0); MONOCYTES % (AUTO) 7.3 % (1.7-9.3); NEUTROPHILS % (AUTO) 45.8 % (42.2-75.2); PLATELET COUNT (AUTO) 192 K/uL (140-450); RED BLOOD CELL COUNT(AUTO) 3.56 MIL/uL (4.20-5.40); RED CELL DISTRIBUTION WIDTH 13.2 % (11.6-13.7); WHITE BLOOD COUNT (AUTO) 6.5 K/uL (4.8-10.8)
[2020-10-19] MEDS: TAMSULOSIN 0.4 MG CAP PO SCH (07:55)
[2020-10-19] MEDS: ATORVASTATIN 20 MG TAB PO SCH (07:56)
[2020-10-19] MEDS: PHENAZOPYRIDINE 100 MG TAB PO SCH ×3 (07:57→17:10)
[2020-10-19] MEDS: lisinopriL 5 MG TAB PO SCH (07:58)
[2020-10-19 08:00] LABS: MAGNESIUM 1.3 mg/dL (1.8-2.4); PHOSPHORUS 3.1 mg/dL (2.5-4.9)
--- NOTE | 2020-10-19 08:01 | NUR ---
ADMINISTERED SCHEDULED MEDICATIONS PER MD ORDER. EDUCATED PT ON MEDICATIONS MOA AND SIDE EFFECTS. PT VERBALIZED UNDERSTANDING OF TEACHING. ASSESSED IV SITE PATENCY AND PATENCY WAS INTACT. CONDUCTED A FOCUS ASSESSMENT. PT HAD NO COMPLAINTS OF PAIN. SAFETY PRECAUTIONS ARE IN PLACE.CALL LIGHT IS WITHIN REACH. WILL CONTINUE TO MONITOR. Addendum: 10/19/20 at 0804 by Aimee Tejeda RN RN BP WAS 147/84, DE: 84.
[2020-10-19] MEDS ORDERED: MAG SULF 2000 MG/WATER PREMIX 50 ML IV SCH (08:30)
--- NOTE | 2020-10-19 08:58 | NUR ---
ADMINISTERED MAG RIDER FOR MAGNESIUM LEVEL OF 1.3L. EDUCATED PT ON MEDICATIONS MOA AND SIDE EFFECTS. PT VERBALIZED UNDERSTANDING. PLACED PT ON SEIZURE PRECAUTIONS BY PADDING THE SIDE RAILS. PT IS RESTING COMFORTABLY. IV FLUIDS ARE RUNNING WELL. CALL LIGHT IS WITHIN REACH. WILL CONTINUE TO MONITOR.
[2020-10-19] MEDS: NACL 0.9% 1,000 ML IV SCH (10:39)
--- NOTE | 2020-10-19 10:46 | NUR ---
ADMINISTERED 1MG OF DILAUDID PO. FOR PAIN ON ABDOMEN AND BACK RATED A 7/10. BP WAS 149/89, [place] 86. EDUCATED PT ON MEDICATIONS MOA AND SIDE EFFECTS. PT VERBALIZED UNDERSTANDING. PT HAS FACIAL GRIMACING AND ON THE PHONE. SAFETY PRECAUTIONS ARE IN PLACE. WILL REASSESS IN 1 HOUR
--- NOTE | 2020-10-19 12:28 | NUR ---
BG WAS 208MG/DL. ADMINISTERED 4 UNITS OF HUMALOG PER SLIDING SCALE. EDUCATED PT ON INSULINS MOA AND SIDE EFFECTS. PT VERBALIZED UNDERSTANDING. PT IS TALKING ON THE PHONE AND IS NOT UNDER ACUTE DISTRESS. WILL CONTINUE TO MONITOR.
--- NOTE | 2020-10-19 13:11 | NUR ---
ADMINISTERED SCHEDULED MEDICATIONS PER MD ORDER. EDUCATED PT ON MEDICATIONS MOA AND SIDE EFFECTS. PT VERBALIZED UNDERSTANDING. PT IS EATING AND DOES NOT APPEAR TO BE IN ANY ACUTE DISTRESS. CALL LIGHT IS WITHIN REACH. WILL CONTINUE TO MONITOR.
[2020-10-19 16:07] VITALS: BP 141/84
[2020-10-19] MEDS: LEVOFLOXACIN 750 MG/D5W PREMIX 150 ML IV SCH (16:59)
[2020-10-19] MEDS: DOCUSATE SODIUM 100 MG GELCAP PO PRN (17:14)
--- NOTE | 2020-10-19 17:15 | NUR ---
ADMINISTERD SCHEDULED MEDICATIONS PER MD ORDER. BG WAS 258 MG/DL AND I ADMINISTERED 6 UNITS OF HUMALOG. PT HAD A 7/10 PAIN ON ABDOMEN AND I ADMINISTERED 1 DILAUDID. PT HAD FACIAL GRIMACING. BP WAS 160 MN: 89. EDUCATED PT ON MEDICATIONS MOA AND SIDE EFFECTS. PT VERBALIZED UNDERSTANDING. WILL REASSESS PAIN IN 3O MINUTES.
--- NOTE | 2020-10-19 19:29 | NUR ---
ENDORSED PT TO NIGHT NURSE FOR CONTINUITY OF CARE. PT IS STABLE.
--- NOTE | 2020-10-19 19:30 | NUR ---
RECEIVED REPORT FROM RN DAYSHIFT NURSE AT BEDSIDE FOR CONTINUITY OF CARE, PT IN STABLE CONDITION.
[2020-10-19 20:00] VITALS: BP 126/90
--- NOTE | 2020-10-19 20:00 | NUR ---
PT STANDING BY BED AOX4 IV SITE ON LEFT HAND 22 GUAGE INTACT AND RUNNING NORMAL SALINE AT 80MLS/HR. V/S FOLLOWS: T 97.0 P 108 R 20 B/P 126/90 02 99% ON ROOM AIR. PT SAID SHE STILL FEELS CONSTIPATED , BUT HAD 1 SMALL BM. PT GIVEN REQUESTED PRUNE JUICE. PT ALSO ENCOURAGED TO AMBULATE IN HALLWAY TO HELP MOVE HER BOWELS. PT VERBALIZED UNDERSTANDING. PT SAYS HER PAIN ON LEFT SIDE IS TOLERABLE AT THIS TIME. ALL UN[place]AL [place]S PRECAUTIONS IN PLACE.
--- NOTE | 2020-10-19 20:45 | NUR ---
RECEIVED CALL FROM LAB, PT URINE CULTURE CAME BACK POSITIVE FOR E COLI IN THE URINE. PT IS ON LEVAQUIN Q 24 HRS, WILL CONTACT MD TIDWELL AND PRIMARY .
[2020-10-19] MEDS: KETOROLAC 30 MG/ML VIAL IVP PRN (21:37)
--- NOTE | 2020-10-19 22:00 | NUR ---
TEXTED MD TIDWELL WITH RESULTS OF URINE CULTURE, PT ON LEVAQUIN, BUT LEVAQUIN IS NOT SENSITIVE TO E COLI BACTERIA. AWAITING NEW ORDERS. ALSO TEXTED MD SANCHEZ COVERING FOR MD BYRNE. AWAITING NEW ORDERS. PT C/O OF MILD PAIN AND GIVEN TORADOL IVP.
[2020-10-19] MEDS ORDERED: GENTAMICIN PER PHARMACY MC PRN (22:25)
[2020-10-19] MEDS: GENTAMICIN 120 MG in DEXTROSE 5% 100 ML IV SCH (23:00)
[2020-10-20] MEDS ORDERED: GENTAMICIN 80 MG/2 ML VIAL ONE (00:35)
[2020-10-20] MEDS: NACL 0.9% 1,000 ML IV SCH ×3 (00:45→23:25)
[2020-10-20] MEDS: HYDROmorphone 2 MG TAB PO PRN ×3 (01:23→21:01)
--- NOTE | 2020-10-20 01:30 | NUR ---
PT UP DATED AND EDUCATED REGARDING DIAGNOSIS AND NEWLY ORDERED MEDICATION. NO REACTION OF ABT NOTED. PT C/O OF SEVERE PAIN ON LEFT SIDE AND WAS GIVEN PO/PRN DILAUDID; WASTE WITNESSED BY MATT YOUNG. ALSO PT HAD US OF KIDNEYS DONE AT BEDSIDE, WHICH WAS ORDERED BY INFECTIOUS DISEASE MD TIDWELL.
[2020-10-20 04:00] VITALS: BP 145/85
--- NOTE | 2020-10-20 06:30 | NUR ---
LAST FINGERSTICK IS 176 2 UNITS OF HUMALOG COVERAGE GIVEN.
[2020-10-20] MEDS: INSULIN LISPRO SLIDING SCALE 100 UNITS/ML VIAL SUBQ PRN ×4 (06:52→20:53)
[2020-10-20] MEDS: BLOOD GLUCOSE MONITORING 1 DEV DEV FS SCH ×4 (06:55→20:48)
[2020-10-20] MEDS: PHENAZOPYRIDINE 100 MG TAB PO SCH ×3 (08:01→17:40)
[2020-10-20] MEDS: TAMSULOSIN 0.4 MG CAP PO SCH (08:02)
[2020-10-20] MEDS: ATORVASTATIN 20 MG TAB PO SCH (08:02)
[2020-10-20] MEDS: lisinopriL 5 MG TAB PO SCH (08:03)
--- NOTE | 2020-10-20 08:12 | NUR ---
ADMINISTERED SCHEDULED MEDICATIONS PER MD ORDER. EDUCATED PT ON MEDICATIONS MOA AND SIDE EFFECTS. PT VERBALIZED UNDERSTANDING. BP WAS 127/80, IL 85, RR 19. PT COMPLAINED OF 7/10 PAIN ON HER LOWER BACK DESCRIBED ACHING. ADMINISTERED PAIN MEDICATION. PT IS NOT IN ACUTE DISTRESS. CALL LIGHT IS WITHIN REACH AND PT KNOWS HOW TO REACH ME. WILL CONTINUE TO MONITOR.
[2020-10-20] MEDS: GENTAMICIN 120 MG in DEXTROSE 5% 100 ML IV SCH ×2 (11:47→23:26)
--- NOTE | 2020-10-20 11:47 | NUR ---
ADMINISTERED SCHEDULED MEDICATIONS PER MD ORDER. BG WAS 161 MG/.DL. ADMINISTERED TWO UNITS OF HUMALOG. IV FLUIDS ARE RUNNING WELL. PT WAS EDUCATED ON MEDICATIONS SIDE EFFECTS AND MOA. PT VERBALIZED UNDERSTANDING. CALL LIGHT IS WITHIN REACH. WILL CONTINUE TO MONITOR.
[2020-10-20 12:00] VITALS: BP 127/80
[2020-10-20 12:52] LABS: BASOPHILS % (AUTO) 0.3 % (0.0-2.0); EOSINOPHILS # (AUTO) 0.2 K/uL (0-0.4); EOSINOPHILS % (AUTO) 2.4 % (0.0-4.0); HEMATOCRIT 37.3 % (36-48); HEMOGLOBIN 12.6 g/dL (12.0-16.0); LYMPHOCYTES # (AUTO) 2.6 K/uL (2.5-16.5); LYMPHOCYTES % (AUTO) 39.2 % (20.5-51.1); MEAN CORPUSCULAR HEMOGLOBIN 30 pg (27-31); MEAN CORPUSCULAR HGB CONC 34 g/dL (33-37); MEAN CORPUSCULAR VOLUME 89.4 fL (80-94); MONOCYTES # (AUTO) 0.4 K/uL (0.8-1.0); MONOCYTES % (AUTO) 6.5 % (1.7-9.3); NEUTROPHILS # (AUTO) 3.4 K/uL (1.8-7.7); NEUTROPHILS % (AUTO) 51.6 % (42.2-75.2); PLATELET COUNT (AUTO) 251 K/uL (140-450); RED BLOOD CELL COUNT(AUTO) 4.17 MIL/uL (4.20-5.40); RED CELL DISTRIBUTION WIDTH 13.3 % (11.6-13.7); WHITE BLOOD COUNT (AUTO) 6.6 K/uL (4.8-10.8)
[2020-10-20 13:12] LABS: ANION GAP 11.9 (8-16); CARBON DIOXIDE 25.5 mmol/L (21-32); CREATININE 0.7 mg/dL (0.6-1.3); MAGNESIUM 1.4 mg/dL (1.8-2.4); POTASSIUM 4.4 mmol/L (3.5-5.1)
--- NOTE | 2020-10-20 13:47 | NUR ---
ADMINISTERED SCHEDULED MEDICATIONS PER MD ORDER. EDUCATED PT ON MEDICATIONS MOA AND SIDE EFFECTS. PT AND SPOUSE VERBALIZED UNDERSTANDING. SAFETY PRECAUTIONS ARE IN PLACE. WILL CONTINUE TO MONITOR.
--- NOTE | 2020-10-20 16:50 | NUR ---
ADMINISTERED 4 UNITS OF HUMALOG FOR A BG OF 251MG/DL. EDUCATED PT ON INSULIN MOA AND SIDE EFFECTS. PT VERBALIZED UNDERSTANDING.CALL LIGHT IS WITHIN REACH. WILL CONTINUE TO MONITOR.
--- NOTE | 2020-10-20 17:41 | NUR ---
ADMINISTERED SCHEDULED MEDICATIONS PER MD ORDER. I EDUCATED PT ON MEDICATIONS MOA AND SIDE EFFECTS. PT VERBALIZED UNDERSTANDING. IV SITE WAS NOT PATENT. DC'S IV SITE DUE TO NON PATENCY. IV CATHETER WAS INTACT. WILL CONTINUE TO MONITOR.
--- NOTE | 2020-10-20 19:30 | NUR ---
ENDORSED TO NIGHT NURSE FOR CONTINUITY OF CARE. PT IS STABLE
[2020-10-20 20:00] VITALS: BP 145/79
--- NOTE | 2020-10-20 22:30 | NUR ---
RECEIVED PATIENT FROM HECTOR TIDWELL. PATIENT ON BED SLEEPING. NO S/S OF RESPIRATORY DISTRESS. SAFETY PRECAUTION IN PLACE. CALL LIGHT WITHIN REACH. WILL CONTINUE TO MONITOR.
[2020-10-21 04:00] VITALS: BP 134/78
[2020-10-21 06:54] LABS: BASOPHILS % (AUTO) 0.4 % (0.0-2.0); EOSINOPHILS # (AUTO) 0.2 K/uL (0-0.4); EOSINOPHILS % (AUTO) 2.6 % (0.0-4.0); HEMATOCRIT 33.3 % (36-48); HEMOGLOBIN 11.4 g/dL (12.0-16.0); LYMPHOCYTES % (AUTO) 45.7 % (20.5-51.1); MEAN CORPUSCULAR HEMOGLOBIN 30 pg (27-31); MEAN CORPUSCULAR HGB CONC 34 g/dL (33-37); MEAN CORPUSCULAR VOLUME 88.7 fL (80-94); MONOCYTES # (AUTO) 0.6 K/uL (0.8-1.0); MONOCYTES % (AUTO) 8.7 % (1.7-9.3); NEUTROPHILS # (AUTO) 2.8 K/uL (1.8-7.7); NEUTROPHILS % (AUTO) 42.6 % (42.2-75.2); PLATELET COUNT (AUTO) 227 K/uL (140-450); RED BLOOD CELL COUNT(AUTO) 3.75 MIL/uL (4.20-5.40); RED CELL DISTRIBUTION WIDTH 13.4 % (11.6-13.7); WHITE BLOOD COUNT (AUTO) 6.5 K/uL (4.8-10.8)
[2020-10-21 07:01] LABS: ANION GAP 12.6 (8-16); CARBON DIOXIDE 23.3 mmol/L (21-32); CREATININE 0.7 mg/dL (0.6-1.3); MAGNESIUM 1.2 mg/dL (1.8-2.4); PHOSPHORUS 2.8 mg/dL (2.5-4.9); POTASSIUM 3.9 mmol/L (3.5-5.1)
[2020-10-21] MEDS: BLOOD GLUCOSE MONITORING 1 DEV DEV FS SCH ×4 (07:04→20:58)
[2020-10-21] MEDS: INSULIN LISPRO SLIDING SCALE 100 UNITS/ML VIAL SUBQ PRN ×4 (07:05→20:53)
--- NOTE | 2020-10-21 07:35 | NUR ---
ENDORSED TO AM NURSE FOR CONTINUITY OF CARE. PATIENT IS IN STABLE CONDITION.
--- NOTE | 2020-10-21 07:35 | NUR ---
RECEIVED PT AAOX4. NO SOB NOTED. N0 C/O PAIN AT THIS TIME. IV TO LT UPPER ARM PATENT AND INTACT. CHEST CLEAR. ABDOMEN SOFT, BOWEL SOUNDS PRESENT. NO EDEMA NOTED. INSTRUCTED PT TO CALL FOR ASSISTANCE, CALL LIGHT WITHIN REACH, VERBALIZED UNDERSTANDING.
[2020-10-21 08:00] VITALS: BP 149/87
[2020-10-21] MEDS: TAMSULOSIN 0.4 MG CAP PO SCH (09:11)
[2020-10-21] MEDS: ATORVASTATIN 20 MG TAB PO SCH (09:11)
[2020-10-21] MEDS: NACL 0.9% 1,000 ML IV SCH ×2 (09:11→22:22)
[2020-10-21] MEDS: LACTOBACILLUS RHAMNOSUS GG 1 EACH CAP PO SCH (09:12)
[2020-10-21] MEDS: lisinopriL 5 MG TAB PO SCH (09:12)
[2020-10-21] MEDS: HYDROcodone/APAP 7.5/325 MG 1 TAB PO PRN ×3 (09:12→23:55)
[2020-10-21] MEDS: INSULIN LANTUS 100 UNITS/ML 10 ML VIAL SUBQ SCH (09:33)
[2020-10-21] MEDS: GENTAMICIN 120 MG in DEXTROSE 5% 100 ML IV SCH ×2 (12:43→22:16)
--- NOTE | 2020-10-21 13:00 | NUR ---
PT AMBULATORY WITH STEADY GAIT. INSTRUCTED TO CALL FOR HELP WITH ANYTHING. PT VERBALIZED UNDERSTANDING.
[2020-10-21] MEDS ORDERED: LORazepam 2 MG/ML VIAL IM/IVP PRN (15:30)
[2020-10-21] MEDS ORDERED: FLUCONAZOLE 100 MG TAB PO SCH (16:00)
--- NOTE | 2020-10-21 19:14 | NUR ---
PT RESTING. NO SOB NOTED. NO COMPLAINTS MADE. WILL ENDORSE TO NEXT SHIFT NURSE FOR CONTINUITY OF CARE.
--- NOTE | 2020-10-21 19:26 | NUR ---
RECEIVED REPORT FROM DAYSHIFT NURSE FOR CONTINUITY OF CARE. PATIENT IN STABLE CONDITION. FAMILY MEMBER WAS AT THE BEDSIDE.
--- NOTE | 2020-10-21 19:31 | NUR ---
CALLED LAB TO CANCEL CHLAMYDIA URINE SAMPLE ORDER. DR LEWIS CAMARENA ORDERED TO CANCEL THE ORDER.
[2020-10-21 20:00] VITALS: BP 125/83
[2020-10-21] MEDS: ACYCLOVIR 200 MG CAP PO SCH (20:49)
--- NOTE | 2020-10-21 20:58 | NUR ---
PATIENT RESTING ON BED, NO SIGNS OF DISTRESS. SCHEDULED ACYCLOVIR GIVEN PO. SCHEDULED BS CHECK IT WAS 233, GAVE 4 UNITS OF INSULIN FOR COVERAGE, PT TOLERATED WELL.
[2020-10-21] MEDS ORDERED: MICONAZOLE VAG 2% 45 GM TUBE VG SCH (21:00)
--- NOTE | 2020-10-21 21:19 | NUR ---
PATIENT RESTING ON BED, NO SIGNS OF DISTRESS, DENIES PAIN AT THIS TIME. SAFETY MEASURES IMPLEMENTED, CALL LIGHT WITHIN REACH.
--- NOTE | 2020-10-21 22:38 | NUR ---
HANGED SCHEDULED GENTAMYCIN, PT TOLERATED WELL
--- NOTE | 2020-10-21 23:55 | NUR ---
GAVE PRN NORCO FOR PAIN. PT TOLERATED WELL, PT ON ROOM AIR, NO SIGNS OF DISTRESS. SAFETY MEASURES IMPLEMENTED.
--- NOTE | 2020-10-22 02:00 | NUR ---
PT ASLEEP, ON ROOM AIR, NO SIGNS OF DISTRESS. SAFETY MEASURES IMPLEMENTED, CALL LIGHT WITHIN REACH.
[2020-10-22 04:00] VITALS: BP 103/72
[2020-10-22] MEDS: HYDROcodone/APAP 7.5/325 MG 1 TAB PO PRN (06:31)
[2020-10-22] MEDS: INSULIN LISPRO SLIDING SCALE 100 UNITS/ML VIAL SUBQ PRN ×2 (06:36→11:16)
[2020-10-22] MEDS: BLOOD GLUCOSE MONITORING 1 DEV DEV FS SCH ×2 (06:38→11:13)
[2020-10-22 06:59] LABS: BASOPHILS % (AUTO) 0.4 % (0.0-2.0); EOSINOPHILS # (AUTO) 0.2 K/uL (0-0.4); EOSINOPHILS % (AUTO) 3.3 % (0.0-4.0); HEMOGLOBIN 10.8 g/dL (12.0-16.0); LYMPHOCYTES # (AUTO) 2.5 K/uL (2.5-16.5); LYMPHOCYTES % (AUTO) 48.8 % (20.5-51.1); MEAN CORPUSCULAR HEMOGLOBIN 30 pg (27-31); MEAN CORPUSCULAR HGB CONC 34 g/dL (33-37); MEAN CORPUSCULAR VOLUME 89.7 fL (80-94); MONOCYTES # (AUTO) 0.4 K/uL (0.8-1.0); MONOCYTES % (AUTO) 8.4 % (1.7-9.3); NEUTROPHILS % (AUTO) 39.1 % (42.2-75.2); PLATELET COUNT (AUTO) 223 K/uL (140-450); RED BLOOD CELL COUNT(AUTO) 3.57 MIL/uL (4.20-5.40); RED CELL DISTRIBUTION WIDTH 13.7 % (11.6-13.7); WHITE BLOOD COUNT (AUTO) 5.2 K/uL (4.8-10.8)
--- NOTE | 2020-10-22 07:07 | NUR ---
REPORT RECEIVED FROM LABOR RELATIONS ANALYST NURSE, PT IS ON [facility] DIET MENTAL STATUS X4 FULL CODE, LAST BLOOD GLUCOSE WAS 204 AND INSULIN COVERAGE PROVIDED BY [facility] NURSE. PT IS ON 80 ML/HR NS. SKIN IS INTACT, PT IS POSITIVE FOR E.COLI IN URINE. PAIN MEDICATION NORCO GIVEN AT 6:30 AND IT WAS EFFECTIVE. WILL CONTINUE TO MONITOR PT AND CARRY OUT CURRENT PLAN OF CARE.
[2020-10-22 07:17] LABS: ANION GAP 10.7 (8-16); CARBON DIOXIDE 24.2 mmol/L (21-32); CREATININE 0.6 mg/dL (0.6-1.3); POTASSIUM 3.9 mmol/L (3.5-5.1)
--- NOTE | 2020-10-22 07:24 | NUR ---
ENDORSE PT TO DAYSHIFT NURSE FOR CONTINUITY OF CARE. PT IS STABLE
[2020-10-22 08:00] VITALS: BP 142/86
[2020-10-22] MEDS: LACTOBACILLUS RHAMNOSUS GG 1 EACH CAP PO SCH (08:26)
[2020-10-22] MEDS: ATORVASTATIN 20 MG TAB PO SCH (08:26)
[2020-10-22] MEDS: TAMSULOSIN 0.4 MG CAP PO SCH (08:27)
[2020-10-22] MEDS: ACYCLOVIR 200 MG CAP PO SCH (08:28)
[2020-10-22] MEDS: INSULIN LANTUS 100 UNITS/ML 10 ML VIAL SUBQ SCH (08:32)
--- NOTE | 2020-10-22 08:33 | NUR ---
ALL PRESCRIBED MEDICATIONS WERE GIVEN PER MD ORDER. BLOOD PRESSURE 142/86 [place] 79. BLOOD GLUCOSE WAS 159 8 UNITS OF LANTUS GIVEN. WILL CONTINUE TO MONITOR PT FOR SIDE EFFECTS OF MEDICATION AND S/S OF HYPO/HYPERGLYCEMIA.
[2020-10-22] MEDS ORDERED: INSULIN LANTUS 100 UNITS/ML 10 ML VIAL SUBQ SCH ×2 (09:00→10:00)
[2020-10-22] MEDS ORDERED: lisinopriL 10 MG TAB PO SCH (09:00)
--- NOTE | 2020-10-22 10:07 | NUR ---
8 UNIT SOF LANTUS INSULIN GIVEN IN THE MORINING ADDITIONAL 12 UNITS GIVEN NOW TOTAL 20 UNITS PER MD ORDER.
[2020-10-22] MEDS ORDERED: GLUC-805 FS (10:41)
[2020-10-22] MEDS ORDERED: LISI10TA30 PO (10:41)
[2020-10-22] MEDS ORDERED: HUMSLIDE SUBQ (10:41)
[2020-10-22] MEDS ORDERED: LANC-886 TP (10:41)
[2020-10-22] MEDS ORDERED: ACYC200C26 PO (10:41)
[2020-10-22] MEDS ORDERED: BLOO1EAC9 MC (10:41)
[2020-10-22] MEDS ORDERED: LANTUS SUBQ (10:41)
[2020-10-22] MEDS ORDERED: ATOR20TA40 PO (10:41)
[2020-10-22] MEDS: GENTAMICIN 120 MG in DEXTROSE 5% 100 ML IV SCH (11:12)
[2020-10-22] MEDS: HYDROmorphone 2 MG TAB PO PRN (11:22)
--- NOTE | 2020-10-22 11:25 | NUR ---
ALL PRESCRIBED MEDICATIONS GIVEN PER MD ORDER, BLOOD SUAGR WAS 215 4 UNITS OF INSULIN GIVEN, PT COMPLAIN OF PAIN 09/07 MEDICATED WITH HYDROMORPHONE BLOOD PRESSURE CHECKED BEFORE ADMINISTRATION IT WAS 106/70 UT 79. WILL CONTINUE TO MONITOR PT.
--- NOTE | 2020-10-22 13:30 | NUR ---
DISCHARGED INSTRUCTIONS GIVEN TO PATIENT AT BEDSIDE, ENCOURAGED TO CONTINUE MEDICATIONS AND INSTRUCTED TO FOLLOW UP WITH PCP WITHIN 3-5 DAYS AFTER DISCHARGE. INSTRUCTED TO CHECK BLOOD SUGAR BEFORE MEALS AND INCREASE FLUID INTAKE. REMOVED ID BANDS AND IV INTACT AND COMPLETE NO BLEEDING, CHANGED PT OWN CLOTHES, PT TOOK ALL HER BELONGINGS AND ANSWERED PT QUESTIONS. PT VERBALIZES UNDERSTANDING. ESCORTED PT TO FRONT LOBBY ACCOMPANIED BY PT IS GOING TO BE DISCHARGED HOME. PT IS STABLE.
== END 2020-10-22 14:38 | disposition home or self-care (01) | DRG 690 ==
LOC: MED 11:19 → MTU 19:25
PROVIDERS: ADMIT Hospitalist; ATTEND Hospitalist
DX: N12 Tubulo-interstitial nephritis, not specified as acute or chronic (principal); E87.1 Hypo-osmolality and hyponatremia; B37.49 Other urogenital candidiasis; Z20.822 Contact with and (suspected) exposure to COVID-19; Z88.8 Allergy status to other drugs, medicaments and biological substances; B96.20 Unspecified Escherichia coli [E. coli] as the cause of diseases classified elsewhere; Z88.1 Allergy status to other antibiotic agents; N20.0 Calculus of kidney; I10 Essential (primary) hypertension; E11.69 Type 2 diabetes mellitus with other specified complication; N76.0 Acute vaginitis; Z98.891 History of uterine scar from previous surgery; Z90.49 Acquired absence of other specified parts of digestive tract
CPT/HCPCS: 36415; 76770; 80048; 80053; 80170; 81001; 82948; 83036; 83605; 83735; 84100; 85025; 87040; 87081; 87086; 96365; 96366; 96372; 96375; 96376; 99285; J1580; J1815; J1885; J1956; J2270; J2405; J3475; J7060

== ENCOUNTER 2020-12-30 11:10 | Emergency (ER) | payer MEDICAID, OTHER, SELFPAY ==
[~2020-12-30] VITALS: Ht 162.6 cm; Wt 77.1 kg
[~2020-12-30 11:10] MED LIST changes: +ACYC200C26 PO; +ATOR20TA40 PO; +BLOO1EAC9 MC; +GLUC-805 FS; +HUMSLIDE SUBQ; +LANC-886 TP; +LANTUS SUBQ; +LISI10TA30 PO
[2020-12-30 11:24] VITALS: BP 130/105
--- NOTE | 2020-12-30 11:43 | NUR ---
40/F PRESENTS TO ED WITH C/O LEFT HIP PAIN THAT IS RADIATING DOWN LEFT LEG SINCE THIS MORNING. PATIENT STATES "I FEEL LIKE ITS SCIATIC PAIN." PATIENT STATES HX OF SIMILAR PAIN ON HER RIGHT SIDE IN THE PAST, REPORTS 10/10 SHARP PAIN THAT SHE STATES WORSENS WITH WALKING, OR LAYING ON AFFECTED SIDE. PATIENT STATES SHE TOOK IBUPROFEN 800MG WITH NO RELIEF. DENIES CP, SOB, FEVER, CHILLS, N/V/D.
[2020-12-30] MEDS: KETOROLAC 30 MG/ML VIAL IM ONE (12:26)
[2020-12-30] MEDS: diazePAM 5 MG TAB PO ONE (12:26)
--- NOTE | 2020-12-30 13:00 | NUR ---
PATIENT APPEARS TO BE RESTING IN BED WITH EYES CLOSED, LIGHTS DIMMED FOR COMFORT. WILL CONTINUE TO MONITOR.
[2020-12-30] MEDS: HYDROcodone/APAP 5/325 MG 1 TAB TAB PO ONE (13:33)
[2020-12-30] MEDS ORDERED: METH-1681 PO (14:03)
[2020-12-30] MEDS ORDERED: NAPR-54 PO (14:03)
[2020-12-30] MEDS: MORPHINE SULFATE 4 MG/ML SYR IM ONE (14:48)
[2020-12-30] MEDS: ONDANSETRON 4 MG ODT PO ONE (14:49)
--- NOTE | 2020-12-30 15:06 | NUR ---
Patient discharged with v/s stable. Written and verbal after care instructions ABOUT SCIATICA given and explained. Patient alert, oriented and verbalized understanding of instructions. Ambulatory with steady gait. All questions addressed prior to discharge. ID band removed. Patient advised to follow up with PMD. Rx of ROBAXIN AND NAPROXEN given. Patient educated on indication of medication including possible reaction and side effects. Opportunity to ask questions provided and answered.
[2020-12-30 15:10] VITALS: BP 151/82
== END 2020-12-30 15:06 | disposition home or self-care (01) ==
LOC: MED 11:10
DX: M54.32 Sciatica, left side (principal); E11.9 Type 2 diabetes mellitus without complications; Z79.899 Other long term (current) drug therapy; Z79.4 Long term (current) use of insulin; Z79.1 Long term (current) use of non-steroidal anti-inflammatories (NSAID); Z88.1 Allergy status to other antibiotic agents
CPT/HCPCS: 96372; 99284; J1885; J2270; Q0162

== ENCOUNTER 2021-10-08 19:14 | Emergency (ER) | payer MEDICAID, OTHER ==
[~2021-10-08] VITALS: Ht 162.6 cm; Wt 68.0 kg
[~2021-10-08 19:14] MED LIST changes: +METH-1681 PO; +NAPR-54 PO
[2021-10-08 19:47] VITALS: BP 141/86
--- NOTE | 2021-10-08 19:52 | NUR ---
TO LOBBY FOLLOWING TRIAGE
--- NOTE | 2021-10-08 20:07 | NUR ---
PT TAKEN TO RAD VIA W/C
[2021-10-08] MEDS ORDERED: KETOROLAC 30 MG/ML VIAL IM ONE (20:35)
[2021-10-08] MEDS ORDERED: IBUP-2213 PO (20:51)
[2021-10-08] MEDS ORDERED: ACET-10509 PO (20:51)
--- NOTE | 2021-10-08 21:19 | NUR ---
PER PA ORDER, PTS RIGHT KNEE WAS PLACED IN A PRE-FABRICATED KNEE IMMOBILIZER. IMMOBILIZER WAS MEASURED TO THE PT AND PLACED ON THE RIGHT KNEE. IMMOBILIZER WAS FASTENED. +CMS BEFORE/AFTER. PT WAS ALSO ISSUED CRUTCHES PER PA ORDER. PT WAS INSTRUCTED ON THE PROPER AND SAFE USE OF CRUTCHES AND DISPLAYED ABILITY TO USE THEM SAFELY ON THEIR OWN. PT DID NOT COMPLAI OF ANY PAIN OR DISCOMFORT DUE TO THE KNEE IMMOBILIZER AND DID NOT HAVE AND FURTHER QUESTIONS. PA NOTIFIED.
[2021-10-08 21:20] VITALS: BP 141/86
--- NOTE | 2021-10-08 21:28 | NUR ---
Patient discharged with v/s stable. Written and verbal after care instructions given and explained. Patient alert, oriented and verbalized understanding of instructions. Ambulatory with steady gait. All questions addressed prior to discharge. ID band removed. Patient advised to follow up with PMD. Rx of TYLENOL & IBUPROFEN given. Patient educated on indication of medication including possible reaction and side effects. Opportunity to ask questions provided and answered.
== END 2021-10-08 21:26 | disposition home or self-care (01) ==
LOC: MED 19:14
DX: S83.91XA Sprain of unspecified site of right knee, initial encounter (principal); E11.9 Type 2 diabetes mellitus without complications; Z79.899 Other long term (current) drug therapy; Z88.1 Allergy status to other antibiotic agents; Z79.4 Long term (current) use of insulin; X58.XXXA Exposure to other specified factors, initial encounter; Y93.01 Activity, walking, marching and hiking; Y92.89 Other specified places as the place of occurrence of the external cause; Y99.8 Other external cause status
CPT/HCPCS: 73562; 96372; 99283; J1885

== ENCOUNTER 2023-03-25 13:45 | Emergency (ER) | payer OTHER ==
[~2023-03-25] VITALS: Ht 162.6 cm; Wt 74.8 kg
[~2023-03-25 13:45] MED LIST changes: +ACET-10509 PO; +IBUP-2213 PO
[2023-03-25 13:58] VITALS: BP 138/99; PULSE 95; RESP 17; TEMP 97.6; O2SAT 100
[2023-03-25] MEDS ORDERED: HYDROcodone/APAP 5/325 MG 1 TAB TAB PO ONE (14:50)
[2023-03-25] MEDS ORDERED: ACET-8905 PO ×2 (15:50→16:09)
== END 2023-03-25 16:34 | disposition home or self-care (01) ==
LOC: MED 13:45
DX: S62.141A Displaced fracture of body of hamate [unciform] bone, right wrist, initial encounter for closed fracture (principal); E11.9 Type 2 diabetes mellitus without complications; Z79.4 Long term (current) use of insulin; Z79.899 Other long term (current) drug therapy; W18.30XA Fall on same level, unspecified, initial encounter; Y93.89 Activity, other specified; Y92.89 Other specified places as the place of occurrence of the external cause; Y99.8 Other external cause status
CPT/HCPCS: 73110; 73562; 99284